=== PATIENT | male | born 1955 | race African-American/Black ===

== ENCOUNTER 2017-03-19 07:57 | Emergency (ER) | payer OTHER ==
[~2017-03-19] VITALS: Ht 175.3 cm; Wt 90.7 kg
--- NOTE | ~2017-03-19 | CT2 ---
[facility] A Service of [facility] & [facility] / [facility] RADIOLOGY TEXT RESULTS PATIENT: MAKAYLA GARCIA LOCATION: [facility] : 53 UNIT #: [id number] AGE: [address]: Jorge L Barclay MD SEX: M ORDER DR: [id number] [facility] [address] [place], [place] [address] [id number] MR#: [id number] Acc #: [id number] NAME: MAKAYLA GARCIA : 1955 SEX: M STUDY DATE/TIME: UNIT: [facility] ROOM: STUDY DESCRIPTION: CT Abd and Pelv W Cont Attending Physician: Jorge L Barclay M.D. Ordering Physician: Jorge L Barclay M.D. Primary Care Physician: Generic Doctor Not In System MEDICAL IMAGING REPORT This report is preliminary unless electronic signature is present EXAM CT abdomen and pelvis with contrast, 03/19/2017 12:38 hours HISTORY 1-week history of elevated blood sugar as patient withdraws from methamphetamine. Nausea, vomiting and diffuse abdominal pain, back pain. COMPARISON Abdomen series, 03/19/[address] images were obtained from the lung bases through the pubic symphysis with intravenous contrast. Sagittal and coronal reconstructions were performed. Contrast was Isovue-370, 100 mL IV. Total exam DLP 1,226 mGy-cm. This CT exam was performed with one or more of the following radiation dose reduction techniques: automatic exposure control, adjustment of mA and/or kV according to patient size, and iterative reconstruction. FINDINGS Images through the lung bases demonstrate minimal dependent ground-glass density right greater than left base. Atelectasis is favored. There is no effusion. The distal esophagus is normal. Images through the abdomen demonstrate a normal appearance to the liver, spleen and pancreas. The gallbladder is distended without definite stones, sludge or wall thickening. There is no bile duct dilatation. The adrenal glands are normal. The kidneys are remarkable for a less than 1 cm cyst in the medial upper pole left kidney. There is no stone or obstruction. There is a small cyst measuring 1.6 cm in the posterior lower pole right kidney. The abdominal aorta is normal in caliber. There is no adenopathy or ascites. STS. [facility] A Service of [facility] & [facility] / [facility] RADIOLOGY TEXT RESULTS PATIENT: MAKAYLA GARCIA LOCATION: [facility] : 53 UNIT #: [id number] AGE: [address]: Jorge L Barclay MD SEX: M ORDER DR: The unopacified stomach contains fluid but there is no wall thickening. There is no small bowel distension or small bowel wall thickening. The appendix is surgically absent. The colon demonstrates an area of anastomosis in the region of the hepatic flexure. There is no bowel wall thickening. There is no colonic distension. CT pelvis is negative. IMPRESSION 1. No acute findings in the abdomen or pelvis. The lung bases are clear. 2. There are small bilateral renal cysts. No renal or ureteral calculi. 3. The appendix is surgically absent. Dictated by... Faby العلي M.D. THIS IS AN ELECTRONICALLY VERIFIED REPORT Faby العلي M.D. at 03/20/2017 11:08 AM Saji TD: 03/19/2017 16:12 JOB #: [id number] MEDICAL IMAGING REPORT Page 1 of 1 COPY
--- NOTE | ~2017-03-19 | CR7 ---
[facility] A Service of [facility] & [facility] RADIOLOGY TEXT RESULTS PATIENT: MAKAYLA GARCIA LOCATION: [facility] : 53 UNIT #: [id number] AGE: [address]: Jorge L Barclay MD SEX: M ORDER DR: [id number] [facility] [address] [place], [place] [address] [id number] E MR#: [id number] Acc #: [id number] NAME: MAKAYLA GARCIA : 1955 SEX: M STUDY DATE/TIME: 03/19/2017 11:33 UNIT: [facility] ROOM: STUDY DESCRIPTION: CR Abdomen Single AP View Attending Physician: Jorge L Barclay M.D. Ordering Physician: Jorge L Barclay M.D. Primary Care Physician: Generic Doctor Not In System MEDICAL IMAGING REPORT This report is preliminary unless electronic signature is present EXAM Abdomen, 03/19. HISTORY Increased bowel sounds with abdominal pain for a week. COMPARISON 03/06. FINDINGS Supine view of the abdomen was obtained. The bowel gas pattern is normal. There is marked degenerative change and remodeling of the left hip joint. Study is otherwise normal. IMPRESSION Marked degenerative change left hip. Normal bowel gas pattern. Dictated by... Don Hernandez M.D. THIS IS AN ELECTRONICALLY VERIFIED REPORT Don Hernandez M.D. at 03/19/2017 4:34 PM FEL/gz TD: 03/19/2017 15:01 JOB #: [id number] MEDICAL IMAGING REPORT Page 1 of 1 COPY
--- NOTE | ~2017-03-19 | EKG ---
PATIENT: MAKAYLA GARCIA UNIT #: [id number] Ventricular Rate: 71 BPM Atrial Rate: 71 BPM P-R Interval: 142 ms QRS Duration: 136 ms Q-T Interval: 416 ms QTC Calculation(Bezet): 452 ms P [place]: 70 degrees Calculated R [place]: -88 degrees Calculated T [place]: -22 degrees Diagnosis Line: Normal sinus rhythm with sinus arrhythmia Diagnosis Line: Left axis deviation Diagnosis Line: Right bundle branch block Diagnosis Line: Abnormal ECG Diagnosis Line: No previous ECGs available Diagnosis Line: Confirmed by STEPHAN MUHAMMAD MD ([id number]) on Diagnosis Line: 03/19/2017 11:38:25 AM INTERPRETING MD: JB MCCAULEY
[2017-03-19 09:04] LABS: POC - CKMB 4.8 ng/mL (0.0-7.9); POC - TROPONIN <0.05 ng/mL (<=0.05)
[2017-03-19 09:14] LABS: BASOPHIL% 0.4 % (0-2.5); EOSINOPHIL# 0.2 X10e3 (0-0.7); EOSINOPHIL% 2.1 % (0.0-7.0); HEMATOCRIT 45.2 % (38.0-50.0); HEMOGLOBIN 14.8 gm/dL (13.0-16.0); LYMPHOCYTE# 2.3 X10e3 (1.0-3.5); LYMPHOCYTE% 29.6 % (17.0-45.0); MEAN CELL VOLUME 92.6 FL (83-96); MEAN CORPUSCULAR HEMOGLOBIN 30.3 PG (28-34); MEAN CORPUSCULAR HGB CONC 32.7 g/dL (30-36); MEAN PLATELET VOLUME 9.1 FL (6.5-11.5); MONOCYTE# 0.7 X10e3 (0-1.0); MONOCYTE% 8.5 % (3.0-12.0); NEUTROPHIL# 4.6 X10e3 (1.5-7.1); NEUTROPHIL% 59.4 % (40-75); PLATELET COUNT 166 X10e3 (140-420); RED BLOOD COUNT 4.88 X10e (3.90-5.60); RED CELL DISTRIBUTION WIDTH 14.5 % (11.0-15.5); WHITE BLOOD COUNT 7.8 X10e3 (4.0-10.5)
[2017-03-19 09:17] LABS: DIFF IND NO
[2017-03-19 09:18] LABS: URINE SOURCE CLEAN CATCH
[2017-03-19 09:23] LABS: URINE APPEARANCE CLEAR; URINE BILIRUBIN NEG (NEG); URINE BLOOD NEG (NEG); URINE COLOR YELLOW; URINE GLUCOSE NEG (NEG); URINE KETONE NEG (NEG); URINE LEUKOCYTE ESTERASE 2+ (NEG); URINE NITRATE NEG (NEG); URINE PH 5.5 (5-8); URINE PROTEIN NEG (NEG); URINE SPECIFIC GRAVITY 1.023 (1.003-1.035)
[2017-03-19 09:24] LABS: CULTURE INDICATED? YES; URBCS1 AUWI 0-2 /[HPF] (0-2); URINE BACTERIA AUWI NEG (NEGATIVE); UWBCS1 AUWI 50-100 (0-5)
[2017-03-19 09:49] LABS: URINE SQUAMOUS EPITHELIAL CELL OCCAS /[HPF]
[2017-03-19 09:50] LABS: URINE AMORPHOUS SEDIMENT AMORP URATES; URINE MUCUS PRESENT; URINE TRICHOMONAS PRESENT; URINE YEAST PRESENT
[2017-03-19 09:58] LABS: ALBUMIN SERUM 4.1 g/dL (3.5-5.0); BILIRUBIN, DIRECT 0.1 mg/dL (0.0-0.2); BILIRUBIN,INDIRECT 0.6 mg/dL (0.0-0.9); BILIRUBIN,TOTAL 0.7 mg/dL (0.2-2.0); CALCIUM SERUM 9.1 mg/dL (8.4-10.2); CREATININE SERUM 1.1 mg/dL (0.6-1.4); GLOM FILT RATE Estimated 71.1 mL/min (>60); PROTEIN TOTAL SERUM 7.9 g/dL (6.0-8.3)
[2017-03-19 11:18] LABS: POC - CKMB 4.9 ng/mL (0.0-7.9); POC - TROPONIN <0.05 ng/mL (<=0.05)
== END 2017-03-19 14:30 | disposition home or self-care (01) ==
LOC: CED 07:57
PROVIDERS: Emergency Medicine
DX: N39.0 Urinary tract infection, site not specified (principal); I10 Essential (primary) hypertension; A59.9 Trichomoniasis, unspecified; F15.93 Other stimulant use, unspecified with withdrawal; E11.9 Type 2 diabetes mellitus without complications; J45.909 Unspecified asthma, uncomplicated; Z90.49 Acquired absence of other specified parts of digestive tract
CPT/HCPCS: 36415; 74000; 74177; 80048; 80076; 81003; 82553; 82947; 83690; 84484; 85025; 87086; 93005; 96361; 96374; 99285; J0696; J1170; J2405; Q9967